=== PATIENT | female | born 1960 | race Caucasian/White ===

== ENCOUNTER 2016-07-06 18:43 | Emergency (ER) | payer OTHER ==
[~2016-07-06] VITALS: Ht 154.9 cm; Wt 65.8 kg
[~2016-07-06 18:43] MED LIST: ATROVENT HFA14 GM INH; BUSPIRONE HCL10 MG PO; DILAUDID4 MG PO; ERYTHROMYCIN250 MG PO; EXALGO8 MG PO; JANUVIA100 MG PO; LIDODERM 5%1 PATC1 TRANSDERM; LINZESS145 MCG PO; LIPITOR10 MG PO; METFORMIN HCL1000 M1 PO; MIRALAX17 GM PO; NEURONTIN600 MG PO; NUCYNTA ER100 MG PO; OMEGA-31000 M1 PO; PHENERGAN 25 MG25 M1 PO; PROTONIX40 M1 PO; REQUIP1 MG PO; SERTRALINE HCL50 MG PO; SINUS & ALLERG1 EACH PO; TRANSDERM-SCO1 PATC1 TD; TRAZODONE 150150 M1 PO; VITAMIN B-12500 MCG PO; XANAX 0.5 MG0.5 MG PO; ZANAFLEX4 MG PO; ZANTAC 150MG T150 MG PO
[2016-07-06] MEDS ORDERED: OXYCODONE HCL15 MG PO (19:17)
[2016-07-06] MEDS ORDERED: MS CONTIN 30 MG30 MG PO (19:17)
[2016-07-06 20:19] LABS: ABSOLUTE NEUTROPHILS 3.8 thou/uL (1.4-8.2); BASOPHILS 0.6 % (0.0-2.0); EOSINOPHILS 3.2 % (0.0-3.0); HEMOGLOBIN 12.3 gm/dL (12.0-15.0); LYMPHOCYTES 33.1 % (24.0-44.0); MCH 30.2 pg (26.0-34.0); MCV 88.9 fL (80.0-100.0); MONOCYTES 6.1 % (1.0-8.0); PLATELET COUNT 242 thou/uL (150-400); RBC 4.05 mil/uL (4.20-5.00); WBC 6.6 thou/uL (4.0-11.0)
[2016-07-06 20:25] LABS: MANUAL DIFF NO
[2016-07-06 20:35] LABS: CALCIUM 9.1 mg/dL (8.5-10.1); CREATININE 0.9 mg/dL (0.6-1.3); POTASSIUM 3.7 mmol/L (3.5-5.1)
[2016-07-06 20:42] LABS: ALBUMIN 3.7 g/dL (3.4-5.0); TOTAL BILIRUBIN 0.2 mg/dL (<0.1-1.0); TOTAL PROTEIN 7.4 g/dL (6.4-8.2)
[2016-07-06 20:50] LABS: URINE BILIRUBIN NEGATIVE (Negative); URINE BLOOD NEGATIVE (Negative); URINE COLOR YELLOW; URINE GLUCOSE-RANDOM* NEGATIVE (Negative); URINE KETONES NEGATIVE (Negative); URINE LEUKOCYTES-REFLEX NEGATIVE (Negative); URINE PROTEIN (DIPSTICK) NEGATIVE (Negative); URINE SPECIFIC GRAVITY 1.015 (1.003-1.035); URINE UROBILINOGEN 0.2 E.U./dl (0.2-1.0)
[2016-07-06] MEDS ORDERED: ONDANSETRON HCL4 M2 PO (20:58)
== END 2016-07-06 21:16 | disposition home or self-care (01) ==
LOC: ER 18:43
PROVIDERS: Physician Assistant
DX: K59.00 Constipation, unspecified (principal); K21.9 Gastro-esophageal reflux disease without esophagitis; E11.9 Type 2 diabetes mellitus without complications; K58.9 Irritable bowel syndrome, unspecified; E78.00 Pure hypercholesterolemia, unspecified; G89.29 Other chronic pain; F32.9 Major depressive disorder, single episode, unspecified; F41.9 Anxiety disorder, unspecified; Z90.89 Acquired absence of other organs; Z88.8 Allergy status to other drugs, medicaments and biological substances; Z88.1 Allergy status to other antibiotic agents; Z87.891 Personal history of nicotine dependence

== ENCOUNTER 2016-10-24 20:08 | Emergency (ER) | payer OTHER ==
[~2016-10-24] VITALS: Ht 157.5 cm; Wt 64.9 kg
[~2016-10-24 20:08] MED LIST changes: +MS CONTIN 30 MG30 MG PO; +ONDANSETRON HCL4 M2 PO; +OXYCODONE HCL15 MG PO
== END 2016-10-24 21:48 | disposition home or self-care (01) ==
LOC: ER 20:08
DX: G89.29 Other chronic pain (principal); M54.6 Pain in thoracic spine; E78.00 Pure hypercholesterolemia, unspecified; K58.9 Irritable bowel syndrome, unspecified; K21.9 Gastro-esophageal reflux disease without esophagitis; F32.9 Major depressive disorder, single episode, unspecified; F41.9 Anxiety disorder, unspecified; G47.30 Sleep apnea, unspecified; E11.9 Type 2 diabetes mellitus without complications; Z86.14 Personal history of Methicillin resistant Staphylococcus aureus infection; Z90.49 Acquired absence of other specified parts of digestive tract; Z86.2 Personal history of diseases of the blood and blood-forming organs and certain disorders involving the immune mechanism; Z88.1 Allergy status to other antibiotic agents; Z88.6 Allergy status to analgesic agent; Z87.891 Personal history of nicotine dependence